=== PATIENT | male | born 1945 | race Caucasian/White ===

== ENCOUNTER 2018-02-27 13:52 | Day surgery (SDC) | payer MEDICARE, OTHER, SELFPAY ==
[2018-02-27] VITALS (7 sets, daily range): BP systolic 116–130; BP diastolic 76–89; PULSE 58–85; RESP 8–16; TEMP 35.8–36; O2SAT 91–96; BMI 29.9
[2018-02-27] MEDS: SODIUM CHLORIDE 0.9% 1,000 ML 200 ML IV (14:30)
--- NOTE | 2018-02-27 14:50 | PM.HP.1 ---
History of Present Illness Date Patient Seen: 02/27/18 Time Patient Seen: 14:50 Chief complaint: [id number] Narrative: Very pleasant 72-year-old gentleman here for screening colonoscopy. He denies any problems or symptoms related to the function of his GI tract and needs a colonoscopy as part of a health maintenance program. His last study was in 2007. At that time a biopsy was done but it proved only to be hyperplastic change in the colon Patient History Family & Social History Social History: household members spouse Meds Home Medications Medication Instructions Recorded Confirmed Type No Known Home Medications 02/27/18 02/27/18 History Allergies Allergy/AdvReac Type Severity Reaction Status Date / Time No Known Drug Allergies Allergy Verified 02/27/18 14:13 Review of Systems Review of Systems All systems reviewed & are unremarkable except as noted in HPI and below Exam Vital Signs (past 8 hours): Vital Signs - 8 hr 02/27/18 14:13 Temperature 96.8 F L Pulse Rate 85 Respiratory Rate 16 Blood Pressure 130/89 H Pulse Oximetry 91 Pulse Oximetry 91 Oxygen Delivery Method Room Air Narrative Exam Narrative: Very pleasant and generally healthy gentleman in no obvious distress HEENT: normocephalic and atraumatic, PERRLA, EOMI Lungs: clear to auscultation bilaterally CV: RRR Abd: soft, non-tender, active bowel sounds Ext: no edema Assessment & Plan Plan: Assessment/Plan Narrative: Time for an age specific screening colonoscopy in the setting of a healthy 72 year old gentleman. We have discussed the risks and benefits of the procedure and the patient has expressed a desire to have the procedure today.
--- NOTE | 2018-02-27 14:57 | P.HP_ITS ---
History of Present Illness Date Patient Seen: 02/27/18 Time Patient Seen: 14:50 Chief complaint: [id number] Narrative: Very pleasant 72-year-old gentleman here for screening colonoscopy. He denies any problems or symptoms related to the function of his GI tract and needs a colonoscopy as part of a health maintenance program. His last study was in 2007. At that time a biopsy was done but it proved only to be hyperplastic change in the colon Patient History Family & Social History Social History: household members spouse Meds Home Medications Medication Instructions Recorded Confirmed Type No Known Home Medications 02/27/18 02/27/18 History Allergies Allergy/AdvReac Type Severity Reaction Status Date / Time No Known Drug Allergies Allergy Verified 02/27/18 14:13 Review of Systems Review of Systems All systems reviewed & are unremarkable except as noted in HPI and below Exam Vital Signs (past 8 hours): Vital Signs - 8 hr 3 02/27/18 14:13 Temperature 96.8 F L Pulse Rate 85 Respiratory Rate 16 Blood Pressure 130/89 H Pulse Oximetry 91 Pulse Oximetry 91 Oxygen Delivery Method Room Air Narrative Exam Narrative: Very pleasant and generally healthy gentleman in no obvious distress HEENT: normocephalic and atraumatic, PERRLA, EOMI Lungs: clear to auscultation bilaterally CV: RRR Abd: soft, non-tender, active bowel sounds Ext: no edema Assessment & Plan Plan: Assessment/Plan Narrative: Time for an age specific screening colonoscopy in the setting of a healthy 72 year old gentleman. We have discussed the risks and benefits of the procedure and the patient has expressed a desire to have the procedure today.
--- NOTE | 2018-02-27 14:59 | SUR.OPER ---
to endo from opd via cart respirations unlabored iv patent positioned per self for procedure
--- NOTE | 2018-02-27 15:19 | PM.OP.1 ---
Operative Date/Time/Diagnoses - Date of procedure: 02/27/18 Time of procedure: 15:19 Pre-op diagnosis: screening Post-op diagnosis: same Procedure & Clinicians Procedure: colonoscopy to the cecum Same procedure as scheduled: Yes Indications: last colonoscopy 2007 Surgeon: Sho Quinonez Anesthesia Type: Sedation (Versed 4 mg, fentanyl 150 mcg) Operative Notes Findings: 1. Excellent prep 2. No polyps or mass lesions 3. No av malformations 4. Scattered diverticula in the sigmoid region 5. Grade 1 internal hemorrhoids Closure Type: not applicable Specimen(s): none sent Procedure in detail: After obtaining informed consent, the patient was brought to the GI suite and placed in the left lateral decubitus position on the examination table. After placement of appropriate monitors, the patient was given incremental doses of Versed and Fentanyl until an appropriate level of sedation was achieved. A time out was held per [facility] protocol. A digital rectal examination was performed and did not reveal any masses or obstructing lesions. The colonoscope was gently passed into the patient's anus and the entire colon navigated to the level of the cecum with minimal difficulty. Once in the cecum, the scope was withdrawn being sure to go before and beyond all mucosal folds and prominences and get an excellent examination. The findings are noted above. At the level of the rectal vault, the scope was retroflexed and the internal anal canal was examined. The scope was straightened and air aspirated from the colon. The instrument was removed from the patient's body and the procedure was concluded.The patient was allowed to awaken from sedation without difficulty and taken to the post-anesthesia care unit in good condition. Total sedation time was 18 min Total withdrawl time was 9 minutes Complications: none Condition: stable Disposition: PACU Plan for aftercare: 1. Discharge to home 2. Plan for next colonoscopy in 10 years or as clinically indicated
[2018-02-27] MEDS: fentaNYL 250 MCG/5 ML INJ 150 MCG IV (15:22)
[2018-02-27] MEDS: MIDAZOLAM 5 MG/5 ML VIAL 4 MG IV (15:22)
== END 2018-02-27 16:10 | disposition home or self-care (01) ==
PROVIDERS: PCP Family Medicine; Visit Provider Surgery
PROC: 0DJD8ZZ Inspection of Lower Intestinal Tract, Via Natural or Artificial Opening Endoscopic (ICD-10-PCS; CPT 45378; principal; 2018-02-27 15:00)
DX: Z12.11 Encounter for screening for malignant neoplasm of colon (principal); Z86.010 Personal history of colon polyps; K57.30 Diverticulosis of large intestine without perforation or abscess without bleeding; K64.0 First degree hemorrhoids
CPT/HCPCS: G0121; 99152; J2250; J3010

== ENCOUNTER → 2018-09-28 09:15 | Outpatient (CLI) | payer MEDICARE, OTHER, SELFPAY ==
--- NOTE | 2018-09-28 | DI.RAD.S_ITS ---
PROCEDURE: XR KNEE LT 3V INDICATIONS: bilat knee pain TECHNIQUE: 3 views of the knee were acquired. COMPARISON: None. FINDINGS: Bones: No fractures or dislocations. No suspicious bony lesions. Degenerative spurring and moderate narrowing of the medial joint space. There is subchondral sclerosis. Soft tissues: Trace joint effusion. No suspicious soft tissue calcifications. IMPRESSION: Trace joint effusion. Moderate left knee degenerative joint disease, primarily involving the medial compartment. Dictated by: Sandor Myles M.D. on 09/28/2018 at 11:31 Approved by: Sandor Myles M.D. on 09/28/2018 at 11:35
--- NOTE | 2018-09-28 | DI.RAD.S_ITS ---
PROCEDURE: XR KNEE RT 3V INDICATIONS: BILATERAL KNEE PAIN TECHNIQUE: 3 views of the knee were acquired. COMPARISON: None. FINDINGS: Bones: No fractures or dislocations. No suspicious bony lesions. Moderate narrowing of the medial joint space and subchondral sclerosis. Scattered degenerative spurring. Soft tissues: Small joint effusion. No suspicious soft tissue calcifications. IMPRESSION: Small joint effusion. Moderate right knee joint degeneration. Dictated by: Sandor Myles M.D. on 09/28/2018 at 11:35 Approved by: Sandor Myles M.D. on 09/28/2018 at 11:36
== END ==
PROVIDERS: PCP Family Medicine; Visit Provider Family Medicine
DX: M25.561 Pain in right knee (principal); M25.562 Pain in left knee; M17.0 Bilateral primary osteoarthritis of knee; M25.461 Effusion, right knee
CPT/HCPCS: 73562

== ENCOUNTER → 2022-11-14 10:49 | Outpatient (CLI) | payer MEDICARE, OTHER, SELFPAY ==
--- NOTE | 2022-11-14 | DI.RAD.S_ITS ---
PROCEDURE: XR LUMBAR SPINE 2-3V INDICATIONS: LOW BACK PAIN TECHNIQUE: 3 views of the lumbar spine were acquired. COMPARISON: None. FINDINGS: Bones: 5 [id number] vertebrae are present. Mild dextroconvex curvature of the lumbar spine. No acute vertebral body compression fractures. No suspicious bony lesions. There is multilevel severe disc space narrowing and degenerative endplate changes and multilevel severe facet hypertrophy. Soft tissues: Overlying bowel gas pattern is normal. No suspicious soft tissue calcifications. IMPRESSION: Severe multilevel spondylosis. Approved by: David Alonzo M.D. on 11/14/2022 at 16:04
== END ==
PROVIDERS: PCP Family Medicine; Referring Provider Family Medicine; Visit Provider Family Medicine
DX: M54.50 Low back pain, unspecified (principal); M47.816 Spondylosis without myelopathy or radiculopathy, lumbar region
CPT/HCPCS: 72100

== ENCOUNTER → 2024-01-02 09:43 | Outpatient (CLI) | payer MEDICARE, OTHER, SELFPAY ==
--- NOTE | 2024-01-02 09:45 | DI.RAD.S_ITS ---
PROCEDURE: XR KNEE LT 1TO2V INDICATIONS: chronic bilateral knee pain TECHNIQUE: 2 views of the knee were acquired. COMPARISON: [facility], CR, XR KNEE RT 3V, 09/28/2018, 9:43. FINDINGS: Bones: No fractures or dislocations. No suspicious bony lesions. Tricompartmental joint space narrowing with associated osteophytosis. Subchondral cystic change and sclerosis of the medial tibiofemoral compartment. Soft tissues: Small joint effusion. No suspicious soft tissue calcifications. 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 Dictated by: Mathew Cavazos M.D. on 01/02/2024 at 13:20 Approved by: Mathew Cavazos M.D. on 01/02/2024 at 13:27
--- NOTE | 2024-01-02 09:45 | DI.RAD.S_ITS ---
PROCEDURE: XR KNEE RT 1TO2V INDICATIONS: chronic bilateral knee pain TECHNIQUE: 3 views of the knee were acquired. COMPARISON: [facility], , XR KNEE RT 3V, 09/28/2018, 9:43. FINDINGS: Bones: No fractures or dislocations. No suspicious bony lesions. Tricompartmental joint space narrowing with associated osteophytosis. Subchondral sclerosis of the medial tibiofemoral compartment. Soft tissues: Small joint effusion. No suspicious soft tissue calcifications. IMPRESSION: [id number] tricompartmental osteoarthritis. Kellgren-Martin Grade 2. Dictated by: Mathew Cavazos M.D. on 01/02/2024 at 13:34 Approved by: Mathew Cavazos M.D. on 01/02/2024 at 13:35
== END ==
PROVIDERS: PCP Family Medicine; Referring Provider Family Medicine; Visit Provider Family Medicine
DX: M25.561 Pain in right knee (principal); M25.562 Pain in left knee; G89.29 Other chronic pain; M17.0 Bilateral primary osteoarthritis of knee
CPT/HCPCS: 73560

== ENCOUNTER → 2024-03-10 06:59 | Outpatient (CLI) | payer MEDICARE, OTHER, SELFPAY ==
--- NOTE | 2024-03-10 07:01 | DI.MRI.S_ITS ---
PROCEDURE: MR KNEE LT WO CON INDICATIONS: PRIMARY OSTEOARTHRITIS OF LEFT KNEE TECHNIQUE: Noncontrast sagittal PD fast spin echo and T2 fast spin echo with fat saturation, sagittal 3-D FLASH with fat saturation; coronal T1 spin echo and PD fast spin echo with fat saturation, and axial PD fast spin echo with fat saturation through the knee. COMPARISON: None. FINDINGS: Image quality: Excellent. Menisci: Peripheral displacement of medial meniscus bowing medial collateral ligament is seen. Complex tear involving body and posterior horn of medial meniscus is seen extending to both superior and inferior articulating surfaces. There is suggestion of oblique tear involving posterior horn of lateral meniscus extending to inferior articulating surface. Cruciate ligaments: The anterior cruciate ligament is thickened near its proximal insertion. The posterior cruciate ligament is intact. Medial structures: The medial collateral ligament appears thickened with adjacent soft tissue edema. Visualized portions of the pes anserinus tendons appear normal. No abnormal bursal fluid. Lateral structures: The lateral collateral ligament, long and short heads of the biceps femoris tendon appear intact. The popliteus tendon appears normal. Iliotibial band appears normal. Anterior structures: The quadriceps and patellar tendons appear intact. Patellar alignment is normal. No femoral trochlear dysplasia or ventral trochlear prominence. No edema in the infrapatellar fat pad. Bones and cartilage: There is marrow edema involving weight-bearing portion of medial femoral condyle and adjacent medial tibial plateau without discrete fracture line. Moderate to severe tricompartmental osteoarthritis and chondromalacia is seen most notably in medial femoral tibial compartment with small osteochondral injuries. No acute fracture or dislocation. Joint space: There is small to moderate knee joint fluid. No Ortega's cyst. Normal appearing synovial plicae are incidentally noted. IMPRESSION: 1. Moderate to severe tricompartmental osteoarthritis and chondromalacia most notably in medial femoral tibial compartment. No fracture or dislocation. Small to moderate joint effusion, no gross loose bodies. 2. Complex tear involving body and posterior horn of medial meniscus extending to both superior and inferior articulating surfaces. Peripheral displacement of medial meniscus. Oblique tear involving posterior horn of lateral meniscus extending to inferior articulating surface. 3. Degenerative changes involving anterior cruciate ligament near its proximal insertion. No ACL rupture. The PCL is intact. 4. Low-grade MCL sprain. Dictated by: Randy Coyle M.D. on 03/11/2024 at 11:17 Approved by: Randy Coyle M.D. on 03/11/2024 at 11:20
== END ==
LOC: MRI 07:00
PROVIDERS: PCP Family Medicine; Referring Provider Orthopaedic Surgery Adult Reconstructive Orthopaedic Surgery; Visit Provider Orthopaedic Surgery Adult Reconstructive Orthopaedic Surgery
DX: S83.232A Complex tear of medial meniscus, current injury, left knee, initial encounter (principal); S83.282A Other tear of lateral meniscus, current injury, left knee, initial encounter; S83.412A Sprain of medial collateral ligament of left knee, initial encounter; M17.12 Unilateral primary osteoarthritis, left knee; M94.262 Chondromalacia, left knee; M25.462 Effusion, left knee
CPT/HCPCS: 73721

== ENCOUNTER → 2024-04-09 07:04 | Outpatient (CLI) | payer MEDICARE, OTHER, SELFPAY ==
[2024-04-09 08:07] LABS: Add Manual Diff / Slide Review NO; Basophils Absolute Auto 0 /uL (0-100); Basophils Percent Auto 0.6 % (0-2); Eosinophils Absolute Auto 100 /uL (0-450); Eosinophils Percent Auto 2.1 % (2-4); Hematocrit 42.8 % (41-53); Hemoglobin 14.4 g/dL (13.5-17.5); Lymphocytes Absolute Auto 1400 /uL (1100-4500); Lymphocytes Percent Auto 21.6 % (25-40); Mean Corpuscular HGB Conc 33.7 % (30-36); Mean Corpuscular Volume 92.1 fL (80-100); Monocytes Absolute Auto 700 /uL (0-900); Monocytes Percent Auto 10.7 % (3-14); Neutrophils Absolute Auto 4300 /uL (1500-7000); Platelet Count 176 X10^3/uL (150-400); Red Blood Cell Count 4.65 X10^6/uL (4.5-5.9); White Blood Cell Count 6.7 X10^3/uL (4.5-11.0)
--- NOTE | 2024-04-09 08:20 | EKG_ITS ---
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
[2024-04-09 08:49] LABS: Hemoglobin A1C% w Est Avg Glu 5.8 % (4.0-6.0)
[2024-04-09 08:56] LABS: Vitamin D 25 Hydroxy (D3) 29.6 ng/mL (30.0-100.0)
[2024-04-09 09:26] LABS: Albumin 4.1 g/dL (3.5-5.0); BUN Creatinine Ratio 13.8 (6-22); Blood Urea Nitrogen 15 mg/dL (9-20); Calcium 8.9 mg/dL (8.4-10.2); Carbon Dioxide 26 mmol/L (22-32); Chloride 107 mmol/L (98-107); Estimated Glomerular Filt Rate > 60 mL/min (>60); Glucose 95 mg/dL (80-110); HEMOLYSIS < 15 (0-50); Potassium 4.2 mmol/L (3.4-5.1); Sodium 139 mmol/L (137-145)
[2024-04-09 09:33] LABS: Prealbumin 33.8 mg/dL (17.6-36.0)
== END ==
PROVIDERS: PCP Family Medicine; Referring Provider Orthopaedic Surgery Adult Reconstructive Orthopaedic Surgery; Visit Provider Orthopaedic Surgery Adult Reconstructive Orthopaedic Surgery
DX: Z01.818 Encounter for other preprocedural examination (principal); R73.9 Hyperglycemia, unspecified; E55.9 Vitamin D deficiency, unspecified; R77.0 Abnormality of albumin; Z01.812 Encounter for preprocedural laboratory examination
CPT/HCPCS: 36415; 80048; 82040; 82306; 83036; 84134; 85025; 93005

== ENCOUNTER → 2024-08-20 07:05 | Outpatient (CLI) | payer MEDICARE, OTHER, SELFPAY ==
[2024-08-20 07:47] LABS: Add Manual Diff / Slide Review NO; Basophils Absolute Auto 0 /uL (0-100); Basophils Percent Auto 0.7 % (0-2); Eosinophils Absolute Auto 200 /uL (0-450); Eosinophils Percent Auto 2.8 % (2-4); Hematocrit 41.8 % (41-53); Hemoglobin 14.2 g/dL (13.5-17.5); Lymphocytes Absolute Auto 1700 /uL (1100-4500); Lymphocytes Percent Auto 25.6 % (25-40); Mean Corpuscular Hemoglobin 30.5 PG (26-34); Mean Corpuscular Volume 89.8 fL (80-100); Monocytes Absolute Auto 700 /uL (0-900); Monocytes Percent Auto 10.5 % (3-14); Neutrophils Absolute Auto 4000 /uL (1500-7000); Neutrophils Percent Auto 60.4 % (50-75); Platelet Count 212 X10^3/uL (150-400); Red Blood Cell Count 4.66 X10^6/uL (4.5-5.9); Red Cell Distribution Width 13.7 % (11.6-14.8); White Blood Cell Count 6.6 X10^3/uL (4.5-11.0)
[2024-08-20 07:54] LABS: Hemoglobin A1C% w Est Avg Glu 5.6 % (4.0-6.0)
[2024-08-20 08:18] LABS: Albumin 4.1 g/dL (3.5-5.0); BUN Creatinine Ratio 19.2 (6-22); Blood Urea Nitrogen 20 mg/dL (9-20); Calcium 9.5 mg/dL (8.4-10.2); Carbon Dioxide 25 mmol/L (22-32); Chloride 106 mmol/L (98-107); Estimated Glomerular Filt Rate > 60 mL/min (>60); Glucose 79 mg/dL (80-110); HEMOLYSIS < 15 (0-50); Potassium 4.4 mmol/L (3.4-5.1); Sodium 138 mmol/L (137-145)
[2024-08-20 08:25] LABS: Prealbumin 34.3 mg/dL (17.6-36.0)
[2024-08-20 08:28] LABS: Vitamin D 25 Hydroxy (D3) 38.4 ng/mL (30.0-100.0)
== END ==
LOC: LAB 07:07
PROVIDERS: PCP Family Medicine; Referring Provider Orthopaedic Surgery Adult Reconstructive Orthopaedic Surgery; Visit Provider Orthopaedic Surgery Adult Reconstructive Orthopaedic Surgery
DX: Z01.812 Encounter for preprocedural laboratory examination (principal); R77.0 Abnormality of albumin; R73.9 Hyperglycemia, unspecified; E55.9 Vitamin D deficiency, unspecified
CPT/HCPCS: 36415; 80048; 82040; 82306; 83036; 84134; 85025